=== PATIENT | female | born 1970 | race Caucasian/White ===

== ENCOUNTER 2016-11-11 23:14 | Emergency (ER) | payer BC ==
--- NOTE | 2016-11-11 23:44 | ED.PDOC ---
History of Present Illness - General Chief Complaint: GI Problem Stated Complaint: Diarrhea with blood Time Seen by Provider: 11/11/16 23:32 Information Source: patient, RN notes reviewed, Vital Signs reviewed, family Exam Limitations: no limitations - History of Present Illness Initial Comments: Patient reports she has had diarrhea since November of last year. She was seen here in February of 2016 and transferred to [facility] with colitis. She got IV antibiotics and was told to follow up with GI. She has not followed up and has continued to have daily diarrhea. Tonight she had worsening pain and blood in her diarrhea. She reports this all started when she started Cymbalta and Diclofenac. She stopped the Diclofenac but has continued to take the Cymbalta. She did take a dose of Diclofenac this evening. Abdominal Pain Onset Location: generalized abdomen Pain Radiation: no radiation Quality: moderate, cramping, sharpness, stabbing Timing/Duration: constant, getting worse Improving Factors: nothing Worsening Factors: nothing Associated Symptoms: diarrhea Review of Systems - Review of Systems Constitutional: States: no symptoms reported. Denies: chills, fever, malaise EENTM: States: no symptoms reported Respiratory: States: no symptoms reported Cardiology: States: no symptoms reported Gastrointestinal/Abdominal: States: see HPI, abdominal pain, diarrhea. Denies: nausea, vomiting Genitourinary: States: no symptoms reported Musculoskeletal: States: no symptoms reported Skin: States: no symptoms reported Neurological: States: no symptoms reported Endocrine: States: no symptoms reported Hematologic/Lymphatic: States: no symptoms reported Past Medical History (General) - Patient Medical History Hx Seizures: No Hx Stroke: No Hx Dementia: No Hx Asthma: No Hx of COPD: No Hx Cardiac Disorders: No Hx Congestive Heart Failure: No Hx Pacemaker: No Hx Hypertension: Yes Hx Thyroid Disease: No Hx Diabetes: No Hx Gastroesophageal Reflux: No Hx Renal Disease: No Hx Cancer: No Hx of HIV: No Hx Hepatitis C: No Hx MRSA: No Surgical History: appendectomy, other - Vaccination History Hx Tetanus, Diphtheria Vaccination: Yes Hx Influenza Vaccination: No Hx Pneumococcal Vaccination: No Immunizations Up to Date: Yes - Social History Hx Tobacco Use: Yes Hx Chewing Tobacco Use: No Hx Alcohol Use: Yes - occ. Hx Substance Use: No Hx Substance Use Treatment: No Hx Depression: Yes Hx Physical Abuse: No Hx Emotional Abuse: No Hx Suspected Abuse: No - Female History Patient : No Family Medical History - Family History Mother Hx Cardiac Disease: Yes Hx Family Diabetes: Yes Hx Family Cancer: Yes Physical Exam - Physical Exam General Appearance: Anxious, No apparent distress, Obese, Well Developed, Well Groomed, Well Hydrated, Well Nourished Neck: non-tender, full range of motion, supple, normal inspection Respiratory: chest non-tender, lungs clear, normal breath sounds, no respiratory distress, no accessory muscle use Cardiovascular/Chest: regular rate, rhythm, no edema, no gallop, no JVD, no murmur Gastrointestinal/Abdominal: abnormal bowel sounds - hyperactive, distended, guarding, rebound, tenderness Extremity: normal range of motion, non-tender, normal inspection Neurologic: no motor/sensory deficits, alert, normal mood/affect, oriented x 3 Skin Exam: normal color, warm/dry Lymphatic: no adenopathy Comments: Vital Signs - 24 hr 11/11/16 11/11/16 11/12/16 23:23 23:24 00:23 Temperature 98.1 F Pulse Rate [ 92 H 92 H 94 H Right Radial] Respiratory 20 20 18 Rate Blood Pressure 122/78 123/80 [Right Arm] O2 Sat by Pulse 93 L 92 L Oximetry Progress - Progress Progress: 11/12/16 00:56 Discussed normal results with patient. Other than itching she is feeling much better after the pain medication, no abd pain. Strongly recommended stopping the Cymbalta. Discussed the side effects that can come from stopping it. Reassured that even though the withdrawal symptoms are strange they are not dangerous and will not hurt her. - Results/Orders Results/Orders: Laboratory Tests 11/11/16 23:50 WBC 13.7 H RBC 4.29 Hgb 13.6 Hct 41.5 MCV 96.7 MCH 31.8 H MCHC 32.9 L RDW 12.4 Plt Count 284 MPV 8.4 Absolute Neuts (auto) 8.30 H Absolute Lymphs (auto) 4.30 H Absolute Monos (auto) 0.60 Absolute Eos (auto) 0.40 Absolute Basos (auto) 0.10 Neutrophils % 60.4 Lymphocytes % 31.3 Monocytes % 4.7 Eosinophils % 2.6 Basophils % 1.0 Sodium 139 Potassium 3.6 Chloride 105 Carbon Dioxide 25 Anion Gap 12.6 BUN 14 Creatinine 0.56 L BUN/Creatinine Ratio 25.0 H Random Glucose 116 H Serum Osmolality 279.0 Calcium 9.3 Total Bilirubin 0.3 AST 21 ALT 19 Alkaline Phosphatase 96 Serum Total Protein 7.3 Albumin 4.2 Globulin 3.1 Albumin/Globulin Ratio 1.4 - EKG/XRAY/CT CT Ordered: Yes - Abd/Pelvis: normal, no acute process Departure - Departure Clinical Impression: Diarrhea due to drug, Chronic diarrhea Time of Disposition: 00:59 Disposition: Discharge to Home or Self Care Condition: Good Departure Forms: ED Discharge - Pt. Copy, Patient Portal Self Enrollment Instructions: Diarrhea Diet: resume usual diet Activity: increase activity as tolerated Home Medications: Ambulatory Orders Diclofenac Sodium [Voltaren] 75 mg PO BIDFD 02/08/16 Diphenoxylate/Atropine [Lomotil Tab] 2.5 mg PO Q4H PRN 02/08/16 Gabapentin 1,200 mg PO TID 02/08/16 HYDROcodone 5MG/APAP 325MG [[place] 5/325] 1 ea PO BID PRN 02/08/16 Lisinopril 20 mg PO DAILY 02/08/16 DULoxetine HCL [Cymbalta] 30 mg PO 0600 11/11/16 Methocarbamol 500 mg PO BID 11/11/16 Additional Instructions: Stop Cymbalta Don't take any Diclofenac
[2016-11-11] MEDS ORDERED: SODIUM CHLORIDE 0.9% 1000ML 1,000 ML IVS ONE (23:50)
[2016-11-11] MEDS ORDERED: HYDROmorphone HCL INJ 2 MG/ML VIAL IV ONE (23:56)
[2016-11-11] MEDS ORDERED: ONDANSETRON INJ 4 MG/2 ML VIAL IV ONE (23:56)
--- NOTE | 2016-11-12 00:48 | CT ---
EXAM: CT abdomen and pelvis with contrast. INDICATION: Abdominal pain, acute. TECHNIQUE: Contiguous axial CT images of the abdomen and pelvis. Intravenous contrast: Present. Oral contrast: Absent. DLP 779 mGy-cm. COMPARISON: 02/08/2016. FINDINGS: Lower chest: Partially imaged. Lung bases: Unremarkable. Cardiac apex: Unremarkable. Solid abdominal viscera: Liver: Unremarkable. Gallbladder: Unremarkable. Pancreas: Unremarkable. Spleen: Unremarkable. Adrenal glands: Unremarkable. Right kidney: No hydronephrosis. Left kidney: No hydronephrosis. Urinary bladder: Unremarkable. Abdominal aorta: Unremarkable. Peritoneal: Free fluid: None. Free air: None. Other: No pathologic sized lymph nodes in the upper abdomen. Bowel: Stomach: Unremarkable. Small bowel: Unremarkable. Appendix: Unremarkable. Colon: Unremarkable. Rectum: Unremarkable. Uterus: Unremarkable. Bones: Unremarkable. IMPRESSION: 1. No CT evidence of acute process of the abdomen. Electronically signed by: César Martinez MD 11/12/2016 12:47 AM CDT
[2016-11-12 01:17] VITALS: BP 128/85; TEMP 97.5; O2SAT 93
== END 2016-11-12 01:15 | disposition home or self-care (01) ==
LOC: ER 23:14
DX: K52.1 Toxic gastroenteritis and colitis (principal); I10 Essential (primary) hypertension; Z87.891 Personal history of nicotine dependence

== ENCOUNTER 2017-03-25 21:15 | Emergency (ER) | payer OTHER ==
[2017-03-25] MEDS ORDERED: SODIUM CHLORIDE 0.9% (FLUSH) 10 ML SYG IV PRN (21:32)
[2017-03-25] MEDS ORDERED: ASPIRIN TABLET 325 MG TAB PO ONE (21:32)
[2017-03-25] MEDS ORDERED: NITROGLYCERIN 0.4 MG 25 EA TAB SL ONE (21:32)
--- NOTE | 2017-03-25 21:32 | ED.PDOC ---
History of Present Illness - General Chief Complaint: Chest Pain/WA Stated Complaint: Chest pain Time Seen by Provider: 03/25/17 21:31 Source: patient Exam Limitations: no limitations - History of Present Illness Initial Comments: Suad Jarquin 46 y/o female stated after finishing dinner at a restaurant about 1930 h she drove home then on her arrival at home she had sudden onset of stabbing substernal chest pain radiating down to upper abdomen and back of chest felt squeezing pain for about 10 minutes sat down on the rear fender of her truck but her symptoms getting intermittent decided to call ambulance. Timing/Duration: 1-3 hours Severity/Quality: stabbing Location: substernal Chest Pain Radiation: back, epigastric Activities at Onset: rest Prior Chest Pain/Cardiac Workup: no prior chest pain, no prior cardiac workup Improving Factors: nothing Worsening Factors: nothing Nitro Today/Relief: no nitro taken today, 0.4 mg x 1, provided by EMS Aspirin Treatment Today: no aspirin today, provided by ED Associated Symptoms: shortness of breath Allergies/Adverse Reactions: Allergies Bee Venom Allergy (Verified 12/03/15 02:14) Doxycycline Allergy (Verified 12/03/15 02:14) Penicillins Allergy (Verified 12/03/15 02:14) Tetracycline Allergy (Verified 02/08/16 01:58) Home Medications: Ambulatory Orders Diphenoxylate/Atropine [Lomotil Tab] 2.5 mg PO Q4H PRN 02/08/16 Gabapentin 1,200 mg PO TID 02/08/16 HYDROcodone 5MG/APAP 325MG [[place] 5/325] 1 ea PO BID PRN 02/08/16 Lisinopril 20 mg PO DAILY 02/08/16 Methocarbamol 500 mg PO BID 11/11/16 Cetirizine HCl [Zyrtec Allergy] 10 mg PO PRN PRN 03/25/17 Chlorzoxazone 1,000 mg PO BEDTIME 03/25/17 Diphenhydramine HCl 25 mg PO PRN PRN 03/25/17 Eletriptan Hydrobromide [Relpax] 40 - 80 mg PO PRN PRN 03/25/17 HYDROcodone 7.5MG/APAP 325MG [[place] 7.5/325] 1 ea PO PRN PRN 03/25/17 Simethicone [Bicarsim Forte] 125 mg PO PRN PRN 03/25/17 Evelia's Wort ([place] Perf [St Simental Wort] 300 mg PO DAILY 03/25/17 hydrOXYzine HCl [Vistaril] 50 mg PO PRN PRN 03/25/17 Nitroglycerin 0.4 mg Tab [Nitrostat] 0.4 ea SL .Q5M PRN #1 bottle 03/26/17 Review of Systems - Review of Systems Constitutional: States: no symptoms reported EENTM: States: no symptoms reported Respiratory: States: see HPI Cardiology: States: see HPI Gastrointestinal/Abdominal: States: no symptoms reported Genitourinary: States: no symptoms reported Musculoskeletal: States: back pain - neck deg. changes Skin: States: no symptoms reported Neurological: States: no symptoms reported Endocrine: States: see HPI Hematologic/Lymphatic: States: no symptoms reported Past Medical History (General) - Patient Medical History Hx Seizures: No Hx Stroke: No Hx Dementia: No Hx Asthma: No Hx of COPD: No Hx Cardiac Disorders: No Hx Congestive Heart Failure: No Hx Pacemaker: No Hx Hypertension: Yes Hx Thyroid Disease: No Hx Diabetes: No Hx Gastroesophageal Reflux: Yes Hx Renal Disease: No Hx Cancer: No Hx of HIV: No Hx Hepatitis C: No Hx MRSA: No Surgical History: other - c-spine fusion,,tubal - Vaccination History Hx Tetanus, Diphtheria Vaccination: Yes Hx Influenza Vaccination: Yes Hx Pneumococcal Vaccination: Yes Immunizations Up to Date: Yes - Social History Hx Tobacco Use: Yes Hx Chewing Tobacco Use: No Hx Alcohol Use: Yes - occ. Hx Substance Use: No Hx Substance Use Treatment: No Hx Depression: Yes Hx Physical Abuse: No Hx Emotional Abuse: No Hx Suspected Abuse: No - Activities of Daily Living Patient Lives Alone: No - family Hospice Agency (if applicable):: None - Female History Patient is a Female of Child Bearing Age (10 -59 yrs old): Yes Patient : No Family Medical History - Family History Mother Living Status: Still Living Hx Cardiac Disease: Yes Hx Family Diabetes: Yes Hx Family Cancer: Yes Physical Exam - Physical Exam General Appearance: Alert, Anxious, No apparent distress Eyes, Ears, Nose, Throat Exam: PERRL/EOMI, normal ENT inspection, pharynx normal Neck: non-tender, full range of motion, supple Respiratory: chest non-tender, lungs clear, normal breath sounds Cardiovascular/Chest: normal peripheral pulses, regular rate, rhythm, no murmur , tachycardia Peripheral Pulses: radial,right: 1+, radial,left: 1+ Gastrointestinal/Abdominal: normal bowel sounds, non tender, soft, no organomegaly Extremity: normal range of motion, non-tender, no pedal edema, no calf tenderness Neurologic: no motor/sensory deficits, alert, normal mood/affect, oriented x 3 Skin Exam: normal color, warm/dry Lymphatic: no adenopathy Progress - Progress Progress: 03/26/17 01:09 Vital Signs - 8 hr 03/25/17 03/25/17 03/25/17 21:26 21:46 22:15 Temperature 98.4 F Pulse Rate [ 108 H 104 H Right radial] Respiratory 20 18 Rate Blood Pressure 126/97 168/84 [Right Arm] O2 Sat by Pulse 94 L 95 94 L Oximetry 03/25/17 23:00 Temperature Pulse Rate [ 100 H Right radial] Respiratory 20 Rate Blood Pressure 101/62 [Right Arm] O2 Sat by Pulse 94 L Oximetry 03/26/17 01:25 Chest pain free,discuss hospital admission for obs and further serial cardiac enzyme but prefers to go home was advised to come back to ER if symptoms recurs and to follow up with primary md 03/27/2017 - Results/Orders Results/Orders: Laboratory Tests 03/25/17 03/25/17 03/25/17 21:05 21:05 21:05 WBC 13.8 H RBC 4.22 Hgb 13.7 Hct 40.3 MCV 95.4 MCH 32.5 H MCHC 34.1 RDW 12.3 Plt Count 329 MPV 8.7 Absolute Neuts (auto) 8.70 H Absolute Lymphs (auto) 3.90 H Absolute Monos (auto) 0.70 Absolute Eos (auto) 0.40 Absolute Basos (auto) 0.10 Neutrophils % 63.0 Lymphocytes % 28.1 Monocytes % 5.2 Eosinophils % 3.1 Basophils % 0.6 PT 11.5 INR 1.020 PTT (SP) 30.4 D-Dimer, Quantitative 712 H* Sodium 138 Potassium 4.0 Chloride 104 Carbon Dioxide 24 Anion Gap 14.0 BUN 13 Creatinine 0.80 BUN/Creatinine Ratio 16.3 Random Glucose 132 H Serum Osmolality 277.7 Calcium 9.0 Magnesium 2.0 Total Bilirubin 0.4 Direct Bilirubin < 0.1 Indirect Bilirubin 0.3 AST 21 ALT 20 Alkaline Phosphatase 91 Creatine Kinase 81 CK-MB (CK-2) 2.5 CK-MB (CK-2) % Not Reportable Troponin I < 0.02 B-Natriuretic Peptide 5.9 Serum Total Protein 7.1 Albumin 4.1 Lipase TSH 0.84 Urine Color Urine Appearance Urine pH Ur Specific Curtis Urine Protein Urine Glucose (UA) Urine Ketones Urine Blood Urine Nitrite Urine Bilirubin Urine Urobilinogen Ur Leukocyte Esterase Urine RBC Urine WBC Ur Epithelial Cells Amorphous Sediment Urine Bacteria Urine Mucus Urine Opiates Screen Urine Barbiturates Ur Phencyclidine Scrn U Amphetamin/Meth Scrn U Benzodiazepines Scrn U Cocaine Metab Screen U Cannabinoids Screen 03/25/17 03/25/17 03/25/17 21:05 22:25 22:25 WBC RBC Hgb Hct MCV MCH MCHC RDW Plt Count MPV Absolute Neuts (auto) Absolute Lymphs (auto) Absolute Monos (auto) Absolute Eos (auto) Absolute Basos (auto) Neutrophils % Lymphocytes % Monocytes % Eosinophils % Basophils % PT INR PTT (SP) D-Dimer, Quantitative Sodium Potassium Chloride Carbon Dioxide Anion Gap BUN Creatinine BUN/Creatinine Ratio Random Glucose Serum Osmolality Calcium Magnesium Total Bilirubin Direct Bilirubin Indirect Bilirubin AST ALT Alkaline Phosphatase Creatine Kinase CK-MB (CK-2) CK-MB (CK-2) % Troponin I B-Natriuretic Peptide Serum Total Protein Albumin Lipase 44 TSH Urine Color Yellow Urine Appearance Clear Urine pH 6.0 Ur Specific Curtis >= 1.030 Urine Protein Negative Urine Glucose (UA) Negative Urine Ketones Negative Urine Blood Small H Urine Nitrite Negative Urine Bilirubin Negative Urine Urobilinogen 0.2 Ur Leukocyte Esterase Negative Urine RBC 1-3 Urine WBC 3-5 H Ur Epithelial Cells 3-5 Amorphous Sediment Trace Urine Bacteria Rare Urine Mucus Trace Urine Opiates Screen Negative Urine Barbiturates Negative Ur Phencyclidine Scrn Negative U Amphetamin/Meth Scrn Negative U Benzodiazepines Scrn Negative U Cocaine Metab Screen Negative U Cannabinoids Screen Negative 03/26/17 00:40 WBC RBC Hgb Hct MCV MCH MCHC RDW Plt Count MPV Absolute Neuts (auto) Absolute Lymphs (auto) Absolute Monos (auto) Absolute Eos (auto) Absolute Basos (auto) Neutrophils % Lymphocytes % Monocytes % Eosinophils % Basophils % PT INR PTT (SP) D-Dimer, Quantitative Sodium Potassium Chloride Carbon Dioxide Anion Gap BUN Creatinine BUN/Creatinine Ratio Random Glucose Serum Osmolality Calcium Magnesium Total Bilirubin Direct Bilirubin Indirect Bilirubin AST ALT Alkaline Phosphatase Creatine Kinase CK-MB (CK-2) CK-MB (CK-2) % Troponin I < 0.02 B-Natriuretic Peptide Serum Total Protein Albumin Lipase TSH Urine Color Urine Appearance Urine pH Ur Specific Curtis Urine Protein Urine Glucose (UA) Urine Ketones Urine Blood Urine Nitrite Urine Bilirubin Urine Urobilinogen Ur Leukocyte Esterase Urine RBC Urine WBC Ur Epithelial Cells Amorphous Sediment Urine Bacteria Urine Mucus Urine Opiates Screen Urine Barbiturates Ur Phencyclidine Scrn U Amphetamin/Meth Scrn U Benzodiazepines Scrn U Cocaine Metab Screen U Cannabinoids Screen - EKG/XRAY/CT EKG: Sinus, Tachy Comments: heart rate-101 XRAY: chest - no acute abnormalities CT Ordered: Yes - chest -cta/no pe Departure - Departure Clinical Impression: Sinus tachycardia Chest pain Qualifiers: Chest pain type: unspecified Qualified Code(s): R07.9 - Chest pain, unspecified Time of Disposition: Disposition: Discharge to Home or Self Care Condition: Good Departure Forms: ED Discharge - Pt. Copy, Patient Portal Self Enrollment Instructions: DI for Chest Pain Referrals: Fidel Rush MD [Primary Care Provider] - 1-2 Weeks Prescriptions: Nitroglycerin 0.4 mg Tab [Nitrostat] 0.4 ea SL .Q5M PRN #1 bottle PRN Reason: Chest Pain Home Medications: Ambulatory Orders Diphenoxylate/Atropine [Lomotil Tab] 2.5 mg PO Q4H PRN 02/08/16 Gabapentin 1,200 mg PO TID 02/08/16 HYDROcodone 5MG/APAP 325MG [[place] 5/325] 1 ea PO BID PRN 02/08/16 Lisinopril 20 mg PO DAILY 02/08/16 Methocarbamol 500 mg PO BID 11/11/16 Cetirizine HCl [Zyrtec Allergy] 10 mg PO PRN PRN 03/25/17 Chlorzoxazone 1,000 mg PO BEDTIME 03/25/17 Diphenhydramine HCl 25 mg PO PRN PRN 03/25/17 Eletriptan Hydrobromide [Relpax] 40 - 80 mg PO PRN PRN 03/25/17 HYDROcodone 7.5MG/APAP 325MG [[place] 7.5/325] 1 ea PO PRN PRN 03/25/17 Simethicone [Bicarsim Forte] 125 mg PO PRN PRN 03/25/17 Evelia's Wort ([place] Perf [[place] Wort] 300 mg PO DAILY 03/25/17 hydrOXYzine HCl [Vistaril] 50 mg PO PRN PRN 03/25/17 Nitroglycerin 0.4 mg Tab [Nitrostat] 0.4 ea SL .Q5M PRN #1 bottle 03/26/17 Additional Instructions: RETURN TO [facility] ER NEEDED FOLLOW UP WITH PRIMARY MD 03/27/2017 for referral to resource coordinator;continue with Baby aspirin 81 mg once a day
[2017-03-25] MEDS ORDERED: SODIUM CHLORIDE 0.9% 1000ML 1,000 ML IVS ONE (21:53)
--- NOTE | 2017-03-25 22:38 | RAD ---
EXAM: Chest,1 View CLINICAL INDICATION: 46-year-old female with pain. TECHNIQUE: Single view, AP portable chest was obtained. COMPARISON: 09/22/2015. FINDINGS: Stable cardiac and mediastinal silhouette. Heart size is normal. Lungs are clear without focal opacity, pneumothorax or pleural effusions. The visualized bones are within normal limits. Incompletely visualized cervical fusion hardware. IMPRESSION: No acute cardiopulmonary abnormalities. Electronically signed by: Margaret Covarrubias MD 03/25/2017 10:36 PM CDT Workstation: [id number]
--- NOTE | 2017-03-25 23:11 | CT ---
EXAM: CT CHEST ANGIOGRAPHY WITH IV CONTRAST HISTORY: pain COMPARISON: None Available TECHNIQUE: Contiguous axial images of the chest were obtained from the thoracic inlet to the level of the upper abdomen after the administration of intravenous contrast followed by reconstruction images. Volume rendering images were performed. This exam was performed according to our departmental dose-optimization program, which includes automated exposure control, adjustment of the mA and/or kV according to patient size and/or use of iterative reconstruction technique. FINDINGS: The aorta is of normal contour and tapering. There is no discrete filling defect within the pulmonary arterial system to suggest pulmonary emboli. There is no pericardial or pleural fluid collection. Linear opacity within the left lung may represent scar versus subsegmental atelectasis. There is no parenchymal consolidation or pneumothorax. Limited images of the upper abdomen are within normal limits. IMPRESSION: No acute intrathoracic abnormality. Electronically signed by: Win Banegas MD 03/25/2017 11:09 PM CDT
[2017-03-26 03:01] VITALS: BP 134/78; TEMP 98; O2SAT 95
== END 2017-03-26 01:34 | disposition home or self-care (01) ==
LOC: ER 21:15
DX: R00.0 Tachycardia, unspecified (principal); R07.9 Chest pain, unspecified; I10 Essential (primary) hypertension; K21.9 Gastro-esophageal reflux disease without esophagitis; Z98.1 Arthrodesis status; Z87.891 Personal history of nicotine dependence; Z79.899 Other long term (current) drug therapy; Z88.0 Allergy status to penicillin; Z88.3 Allergy status to other anti-infective agents; Z91.030 Bee allergy status
CPT/HCPCS: 36415; 71010; 71275; 80048; 80076; 80307; 81001; 82550; 82553; 83690; 83880; 84443; 84484; 85025; 85379; 85610; 85730; 93005; 94760; J7030

== ENCOUNTER → 2017-04-26 | Outpatient (CLI) | payer OTHER | LOC: GMAJ 16:38 | PROVIDERS: ATTEND Family Medicine | DX: R10.13 Epigastric pain (principal) ==

== ENCOUNTER → 2017-05-19 | Outpatient (CLI) | payer OTHER, SELFPAY ==
--- NOTE | 2017-05-19 11:42 | US ---
EXAM DESCRIPTION: Abdomen,Complete CLINICAL HISTORY: RUQ PN COMPARISON: None Available. TECHNIQUE: Transabdominal scannin-dimensional and Doppler modes. FINDINGS: The gallbladder is normal in size, shape, and echogenicity, with no intraluminal stones or sludge. No fluid around the gallbladder. Wall thickness normal. 2.8 mm. Common bile duct caliber 3.5 mm which is within normal limits. No stones in the visualized portion of the duct. Not tender with transducer pressure. The liver demonstrates increased echogenicity; contour of the liver capsule is smooth where seen. No fluid around the liver. Intrahepatic biliary ducts are non-dilated. Craniocaudal dimension in the mid-clavicular axis is 16.6 cm. Large patient body habitus. Pancreas head, body, and tail normal in size and echogenicity. Pancreatic duct is not dilated. Normal Doppler vascularity in the angie hepatis. Abdominal aorta diameter proximal 2.1 cm. Mid 2.2 cm. Distal report for cm. IVC visualized; normal caliber. Spleen normal echogenicity; long axis measurement is 9.8 cm. No fluid in the spleno-renal fossa. Right kidney measures 11.3 x 5.9 x 4.9 cm . Mid renal cortical thickness 11 mm. Echogenicity normal with no hydronephrosis, no large calcifications, and no perinephric fluid. Contour smooth. Vascularity normal. Ureter not visualized. Left kidney measures 12.4 x 5.6 x 5.5 cm. Mid renal cortical thickness normal Echogenicity normal with no hydronephrosis, no large calcifications, and no perinephric fluid. Contour smooth. Vascularity normal. Ureter not visualized. IMPRESSION: 1. Mild hepatomegaly with fatty infiltration. This can be related to obesity or a variety of toxic and metabolic conditions. Normal ducts. No ascites. 2. Normal gallbladder and ducts. Normal ultrasound of the pancreas. Normal ultrasound of the spleen. 3. Minimal cortical thinning in the right kidney. Nonspecific finding. Both kidneys otherwise unremarkable. Electronically signed by: Mehul Vera MD 05/19/2017 11:40 AM CDT
== END | disposition home or self-care (01) ==
LOC: US 08:24
PROVIDERS: ATTEND Family Medicine
DX: R10.11 Right upper quadrant pain (principal)

== ENCOUNTER → 2017-09-19 | Outpatient (CLI) | payer OTHER | LOC: GMAJ 10:30 | PROVIDERS: ATTEND Family Medicine | DX: Z00.00 Encounter for general adult medical examination without abnormal findings (principal) ==

== ENCOUNTER → 2017-10-03 | Outpatient (CLI) | payer OTHER ==
--- NOTE | 2017-10-10 08:52 | MAM ---
EXAM DESCRIPTION: 3D Screening BILATERAL : Digital Mammography. CLINICAL HISTORY: 47 years Female SCREENING . No complaints. Mother with breast cancer. Premenopausal. No HRT. COMPARISON: Baseline At this facility. No prior reports available. TECHNIQUE: Bilateral CC and MLO projection full-field images, 3-D tomosynthesis digital mammographic technique. Also bilateral synthesized CC/ MLO full-field images. CAD not utilized. FINDINGS: The breast parenchymal density pattern is: Heterogeneously dense breast tissue, which may obscure small masses. No skin thickening or nipple retraction bilateral axillary lymph nodes. Mesenteric density similar in density to the surrounding tissues at the 1100 clock position of the left breast middle third approximately 7 cm from the nipple. Not associated with microcalcifications. A conglomeration of nodular densities and focal asymmetry in the middle third of the right breast at the 930 clock position approximately 8 cm from the nipple. Not associated with microcalcifications. IMPRESSION: BI-RADS CATEGORY: 0 - INCOMPLETE- Need additional imaging evaluation. FOLLOW-UP: Recall for additional imaging: Bilateral 3-D tomosynthesis full field LM images. Targeted bilateral breast ultrasound in the regions of interest.. Written communication concerning the IMPRESSION and Follow-up, will be mailed to the patient and referring health care provider. Electronically signed by: Mehul Vera MD 10/10/2017 8:51 AM INDUSTRIAL SOCIOLOGIST
== END ==
LOC: MAMMO 10:30
PROVIDERS: ATTEND Family Medicine
DX: Z12.31 Encounter for screening mammogram for malignant neoplasm of breast (principal)

== ENCOUNTER → 2017-12-05 | Outpatient (CLI) | payer OTHER ==
--- NOTE | 2017-12-05 16:15 | US ---
EXAM DESCRIPTION: Breast,Bilateral: Ultrasound CLINICAL HISTORY: 47 yearsFemaleABN MAMMO COMPARISON: Digital 3-D tomosynthesis diagnostic mammogram bilateral breast on this visit. TECHNIQUE: Transcutaneous scanning of the bilateral breasts utilizing two-dimensional and Doppler modes. Scanning performed by the water resources program director and Dr. Vera. FINDINGS: Scanning at the 900 clock position of the right breast 8 cm from the nipple. Heterogeneous fibroglandular and fatty tissues are noted. 7 x 6 x 3 mm hypoechoic solid object with echogenic center and well-defined margins. Consistent with a lymph node. No other distinct solid mass or cyst is seen. No parenchymal edema or large calcifications. No skin changes. No abnormal vascularity. Scanning at the 900 clock position of the left breast 6 cm in the nipple. Heterogeneous fibroglandular and fatty tissues. No distinct solid mass or cyst. No parenchymal edema or large calcifications. No skin changes or abnormal vascularity. IMPRESSION: 1. Bi-Rads Category 2: Benign. 2. Please refer to bilateral 3-D tomosynthesis diagnostic mammogram examination and report on this visit. The FINDINGS and the FOLLOW-UP plan were reviewed in person with the patient after the examination. Written communication explaining the IMPRESSION and FOLLOW-UP will be mailed to the patient and referring care provider. Electronically signed by: Mehul Vera MD 12/05/2017 4:14 PM CDT
--- NOTE | 2017-12-05 16:16 | MAM ---
EXAM DESCRIPTION: 3D Diagnostic, Bilateral: Digital Mammography CLINICAL HISTORY: 47 [id number] bilateral focal asymmetry.. COMPARISON: Bilateral 3-D tomosynthesis screening examination October 03, 2017. Bilateral targeted breast ultrasound following this examination. Reports from prior examinations also reviewed. TECHNIQUE: Bilateral LM projection full-field images, 3-D tomosynthesis digital mammographic technique. Also bilateral synthesized LM full-field images. CAD not utilized. FINDINGS: The breast parenchymal density pattern is: Heterogeneously dense breast tissue, which may obscure small masses. No skin thickening or nipple retraction next posterior acoustic features with parallel orientation. Nonvascular. Ultrasound: Scanning at the 900 clock position of the right breast 8 cm from the nipple. Heterogeneous fibroglandular and fatty tissues are noted. 7 x 6 x 3 mm hypoechoic solid object with echogenic center and well-defined margins. Consistent with a lymph node. No other distinct solid mass or cyst is seen. No parenchymal edema or large calcifications. No skin changes. No abnormal vascularity. Scanning at the 900 clock position of the left breast 6 cm in the nipple. Heterogeneous fibroglandular and fatty tissues. No distinct solid mass or cyst. No parenchymal edema or large calcifications. No skin changes or abnormal vascularity. IMPRESSION: 1. BI-RADS CATEGORY: 2 - BENIGN FINDINGS. FOLLOW UP: Return to routine digital bilateral screening, one year interval from September 2017. Written communication explaining the IMPRESSION and follow-up, will be mailed to the patient and referring health care provider. According to the [employer], yearly mammograms are recommended starting at age 40 and continuing as long as a woman is in good health. Any breast change noted on a breast self-exam should be reported promptly to the patient's healthcare provider. Breast MRI is recommended for women with an approximately 20-25% or greater lifetime risk of breast cancer, including women with a strong family history of breast or ovarian cancer and women who have been treated for Hodgkin's disease. A negative mammographic report should not delay tissue diagnosis in patients with significant clinical history or physical findings. Extremely dense breast tissue limits the sensitivity of digital mammography. Electronically signed by: Mehul Vera MD 12/05/2017 4:14 PM CDT
== END ==
LOC: MAMMO 13:32
PROVIDERS: ATTEND Family Medicine
DX: R92.8 Other abnormal and inconclusive findings on diagnostic imaging of breast (principal)
CPT/HCPCS: 76641; 77066; G0279